=== PATIENT | male | born 1945 | race Caucasian/White ===

== ENCOUNTER → 2016-11-20 | Outpatient (CLI) | payer BC, MEDICARE, SELFPAY ==
--- NOTE | 2016-11-20 13:04 | CT ---
EXAM DESCRIPTION: Noncontrasted CT of the head. CLINICAL HISTORY: CLOSED HEAD INJURY WITHOUT LOC COMPARISON: None available TECHNIQUE: Multiple axial images of the head without contrast FINDINGS: There is a large subcutaneous hematoma noted about the left for head. The calvarium is intact. Limited images of the orbits are unremarkable. Age related involutional changes noted. This results in prominence of the extra-axial spaces, sulci and ventricles. No intracranial hemorrhage. No mass, mass effect or shift. IMPRESSION: 1. There is a large hematoma noted about the left forehead. Age-related involutional changes of the cerebrum, but no evidence of any acute intracranial finding at this time. 2. While not mentioned above there is sclerosis of the mastoid air cells along with a small amount of fluid. This can be seen in setting of a chronic mastoid effusion. Electronically signed by: Eliel Barnard MD 11/20/2016 1:03 PM MONUMENT ERECTOR
== END | disposition home or self-care (01) ==
LOC: CT 10:27
PROVIDERS: ATTEND Family Medicine
DX: S06.0X0A Concussion without loss of consciousness, initial encounter (principal)

== ENCOUNTER → 2017-07-16 | Outpatient (CLI) | payer BC ==
--- NOTE | 2017-07-18 11:47 | CT ---
EXAM DESCRIPTION: Chest w/Contrast CLINICAL HISTORY: HX OF NICOTINE DEPENDENCE COMPARISON: April 11, 2016 TECHNIQUE: Chest CT was performed with IV contrast. This exam was performed according to our departmental dose-optimization program, which includes automated exposure control, adjustment of the mA and/or kV according to patient size and/or use of iterative reconstruction technique. FINDINGS: There is no thoracic aortic aneurysm or dissection. The main pulmonary artery is not dilated. No mediastinal or hilar adenopathy. No pleural or pericardial effusion. Emphysematous changes are noted. The central airways are clear. No airspace consolidation or lung mass. There is a 4 mm noncalcified nodule posteriorly in the right lower lobe, stable. Is a tiny calcified granuloma in the left lower lobe (series 4 image 109). No suspicious left lung nodule. The gallbladder wall appears thickened, at least partially related to gallbladder contraction. No calcified gallstone is seen. Visualized portions of the upper abdomen are otherwise unremarkable. No fracture or pneumothorax. IMPRESSION: Emphysema with a 4 mm noncalcified right lower lobe nodule, stable from March,. Per updated Fleischner Society relation, no further follow-up is recommended for this nodule. Tiny calcified granuloma left lower lobe, but no additional intrathoracic abnormality. Questionable gallbladder wall thickening at least partially related to suboptimal distention. If clinically suspicious of cholecystitis, ultrasound is suggested.. Electronically signed by: Mani Stallworth MD 07/18/2017 11:45 AM CDT
== END | disposition home or self-care (01) ==
LOC: CT 13:16
PROVIDERS: ATTEND Nurse Practitioner Acute Care
DX: J43.8 Other emphysema (principal)

== ENCOUNTER → 2018-11-10 | Outpatient (CLI) | payer MEDICARE, OTHER | LOC: GMAM 16:54 | PROVIDERS: ATTEND Family Medicine | DX: N40.0 Benign prostatic hyperplasia without lower urinary tract symptoms (principal); M25.50 Pain in unspecified joint ==

== ENCOUNTER → 2019-10-27 | Outpatient (CLI) | payer MEDICARE, OTHER ==
--- NOTE | 2019-10-27 13:05 | CT ---
EXAM DESCRIPTION: Abdoment/Pelvis w/o Contrast CLINICAL HISTORY: 74 years Male, GENERALIZED ABDOMINAL PAIN COMPARISON: 05 November 2012 TECHNIQUE: Transaxial images were obtained without intravenous or oral contrast media. Sagittal and coronal reconstruction was performed.This exam was performed according to our departmental dose-optimization program, which includes automated exposure control, adjustment of the mA and/or kV according to patient size and/or use of iterative reconstruction technique. FINDINGS: No pleural fluid is identified. A pleural-based nodule is observed in the right lower lobe unchanged from prior studies. The liver and spleen are normal in appearance. No biliary ductal dilatation is observed. The gallbladder is normal in appearance. No adrenal masses are detected. The pancreas is normal in appearance. Imaging of the kidneys reveals no evidence of hydronephrosis mass or calcification. A simple cyst is observed in the lower pole the right kidney. Calcific atherosclerotic changes observed in the abdominal aorta without evidence of aneurysmal dilatation. Mildly prominent small bowel is observed and may be the result of an ileus or gastroenteritis. No inguinal region abnormality is detected. No free fluid is noted. Prostatic hypertrophy and calcification is observed. Degenerative changes are observed in the lower lumbar spine. IMPRESSION: 1. A mildly abnormal small bowel pattern is observed and felt to be the result of mild ileus or gastroenteritis. The exam is otherwise unremarkable. Electronically signed by: Artemio Willard MD 10/27/2019 1:03 PM CENTRAL [employer] TECHNICIAN
== END ==
LOC: CT 08:00
PROVIDERS: ATTEND Family Medicine
DX: K59.9 Functional intestinal disorder, unspecified (principal)

== ENCOUNTER → 2020-07-06 | Outpatient (CLI) | payer MEDICARE, OTHER ==
--- NOTE | 2020-07-08 05:52 | CT ---
EXAM DESCRIPTION: Abdoment/Pelvis w/o Contrast: Computed Tomography. CLINICAL HISTORY: 75 years Male GENERALIZED ABDOMINAL PAIN COMPARISON: CT abdomen without contrast October 27 TECHNIQUE: Spiral-axial scans 2.5 x 2.5 mm intervals through the abdomen and pelvis without oral or IV contrast. Coronal and sagittal 2.0 mm reconstructions. Axial - 1.25 mm reconstructions.Total Exam DLP: 712 mGy-cm. This exam was performed according to our departmental CT dose-optimization program which includes automated exposure control, adjustment of the mA and/or kV according to patient size and/or use of iterative reconstruction technique; to reduce radiation dose to as low as reasonably achievable (ALARA). FINDINGS: Lung bases and pleura: Nodule medial right lower lobe recess pleural or subpleural stable. Calcified nodule subpleural or pleural abutting right lower lobe stable. Pacing wires right side of heart. Liver, stomach, spleen, and adrenal glands: Small gastric-hiatal hernia stable. Normal size and density of the solid organs. Pancreas, Gallbladder, and Ducts: Gallbladder visualized. Ducts and Pancreas negative. Kidneys and Ureters: 1.8 cm cyst medial cortex right kidney is stable. No radiodense stones or hydronephrosis bilaterally. No perirenal fluid collection. Normal caliber and density of the ureters. Mesentery: No fatty stranding or fascial thickening, but scattered nodes Aorta: Moderate atherosclerotic calcification. Ectasia with maximum diameter 2.2 cm below the renal arteries. Small para-aortic nodes are stable. Small Bowel: Minimally distended with fluid proximally but no transition point or air-fluid levels. Mild distention with gas in the ileum. Fecalization distal ileum. Terminal Ileum/Cecum: Minimal distention of the terminal ileum with Fecalization. Cecum is moderately distended by fecal matter with inferior radiodense food, radiodense medication, or calcification. Appendix not seen. Colon: Moderate distention with fecal matter and gas. Redundancy of the hepatic flexure. This distention of the splenic flexure descending colon and sigmoid colon fecal matter but moderate distention of the distal sigmoid and rectum by gas and fecal matter. No wall thickening or inflammatory changes. Pelvic Organs: Prostate gland is enlarged and abutting the pelvic sidewalls. 5.4 x 4.1 cm in the transverse plane with central calcification and impressing on the base of the bladder. 4.9 cm in the sagittal plane. Minimal bladder wall thickening with no radiodense stones. No free fluid. Spine and Bony Pelvis: Endplate spondylosis and disc desiccation with gas L5-S1, L4-L5, and L1-L2 also in the inferior thoracic spine. Scoliosis spine. Bilateral hip joint space narrowing with hypertrophic superior-lateral acetabula narrowing the joint spaces and abutting the femoral heads. Arthrosis in the SI joints. Abdominal Wall/Back Soft Tissues: Bilateral small fatty inguinal hernias with no bowel incarceration. IMPRESSION: 1. Moderate constipation of the colon resulting in fecalization of the distal ileum and terminal ileum. Mild distention of the proximal small bowel. Scattered mesenteric nodes and proximal small bowel are dilated with fluid could also be an indication of enteritis. 2. Stable cysts left kidney. 3. Prostatic enlargement impressing on the base of the urinary bladder also stable. 4. Stable spondylosis and disc desiccation in the lumbar spine.. Electronically signed by: Manuel Gonzalez MD 07/08/2020 5:50 AM CDT
== END ==
LOC: CT 08:32
PROVIDERS: ATTEND Nurse Practitioner Acute Care
DX: K59.00 Constipation, unspecified (principal); K63.9 Disease of intestine, unspecified; N28.1 Cyst of kidney, acquired; N40.0 Benign prostatic hyperplasia without lower urinary tract symptoms; M47.896 Other spondylosis, lumbar region; M51.36 Other intervertebral disc degeneration, lumbar region